=== PATIENT | female | born 1980 | race Hispanic/Latino ===

== ENCOUNTER 2017-09-18 15:54 | Emergency (ER) | payer BC ==
[~2017-09-18] VITALS: Ht 170.2 cm; Wt 109.0 kg
[~2017-09-18 15:54] MED LIST: AMOXICILLIN500 MG PO; AUGMENTIN875TAB PO; BP MEDS; CLEOCIN VAG2 % VA; DEPO-MEDROL80 MG/ML IM; FLONASE NASAL50 MCG; HCTZ; MIRENA; NAPROSYN500 MG PO; PHENERGAN
[2017-09-18] MEDS ORDERED: AUGMENTIN875TAB PO (16:32)
[2017-09-18 16:43] VITALS: BP 131/89
== END 2017-09-18 16:43 | disposition home or self-care (01) | DRG 605 ==
LOC: ED 15:54
DX: S61.210A Laceration without foreign body of right index finger without damage to nail, initial encounter (principal); W55.01XA Bitten by cat, initial encounter; Y92.481 Parking lot as the place of occurrence of the external cause

== ENCOUNTER 2018-06-26 20:19 | Emergency (ER) | payer BC ==
[~2018-06-26] VITALS: Ht 170.2 cm; Wt 117.0 kg
[2018-06-26] MEDS ORDERED: PHENTERMINE37.5 MG PO (20:35)
[2018-06-26 20:53] VITALS: BP 143/91
== END 2018-06-26 21:16 | disposition home or self-care (01) | DRG 103 ==
LOC: ED 20:19
DX: R51 Headache (principal)

== ENCOUNTER 2019-04-22 | Emergency (ER) | payer BC ==
[~2019-04-22] MED LIST changes: +PHENTERMINE37.5 MG PO
[2019-04-22] MEDS ORDERED: B/P (19:37)
[2019-04-22 20:05] LABS: HEMATOCRIT 39.7 % (37.0-47.0); HEMOGLOBIN 13.2 g/dl (12.0-16.0); IMMATURE GRANULOCYTES 0.3 % (0.0-5.0); MEAN CORPUSCULAR HGB 28.3 pG CALC (26.0-32.0); MEAN CORPUSCULAR HGB CONC 33.2 g/L CALC (32.0-36.0); NEUT# 7.57 thou/uL (2.00-7.15); RED BLOOD COUNT 4.66 mill/uL (4.20-5.60); RED CELL DISTRI WIDTH 13.2 % (11.5-15.5)
[2019-04-22 20:06] LABS: MEAN CELL VOLUME 85.2 fL CALC (80.0-100.0)
[2019-04-22 20:19] LABS: ALBUMIN 4.2 g/dL (3.2-5.0); ALKALINE PHOSPHATASE 101 u/l (38-126); AMYLASE 68 u/l (30-110); ANION GAP 13 (6-22 (CALC)); BILIRUBIN, TOTAL 0.4 mg/dL (0.0-1.4); BUN 17 mg/dL (7-17); BUN/CREATININE RATIO 19 (12-20 (CALC)); CARBON DIOXIDE 24 mmol/l (22-30); CHLORIDE 102 mmol/l (95-108); CREATININE 0.9 mg/dL (0.5-1.0); GFR > 60 ML/MIN (>=60 (CALC)); GFR FOR AFR.AMER. > 60 ML/MIN (>=60 (CALC)); LIPASE 31 u/l (23-300); POTASSIUM 3.5 mmol/l (3.5-5.1); SGOT/AST 33 u/l (14-36); SODIUM 136 mmol/l (137-146)
[2019-04-22 20:24] LABS: ACT PARTIAL THROMBO TIME 27.6 SECONDS (20.0-32.5); D-DIMER 0.44 mg/L (0.19-0.60)
[2019-04-22 20:30] LABS: MYOGLOBIN 19 ng/mL (0 - 62)
[2019-04-22 21:04] LABS: URINE BILIRUBIN - DIPSTICK NEGATIVE (NEGATIVE); URINE BLOOD DIPSTICK SMALL (NEGATIVE); URINE COLOR YELLOW; URINE GLUCOSE - DIPSTICK NEGATIVE (NEGATIVE); URINE KETONE NEGATIVE (NEGATIVE); URINE LEUK ESTERASE TRACE (NEGATIVE); URINE NITRITE - DIPSTICK NEGATIVE (Negative); URINE PROTEIN - DIPSTICK NEGATIVE (NEG-TRACE); URINE UROBILINOGEN - DIPSTICK 0.2 E.U./dL (0.2)
[2019-04-22 21:14] LABS: URINE SQUAMOUS EPITHELIAL CELL MODERATE EPI/hpf (0-FEW)
[2019-04-22] MEDS ORDERED: TORADOL PO (21:47)
== END 2019-04-22 22:02 | disposition home or self-care (01) | DRG 313 ==
PROVIDERS: Family Medicine
DX: R07.89 Other chest pain (principal); R51 Headache